=== PATIENT | male | born 1970 | race Caucasian/White ===

== ENCOUNTER 2016-07-21 21:22 | Emergency (ER) | payer MEDICAID, OTHER ==
[2016-07-21] MEDS ORDERED: FAMOTIDINE INJ/PF 20 MG/2 ML SDV IV ONE (21:59)
[2016-07-21] MEDS ORDERED: ONDANSETRON HCL INJ/PF 4 MG/2 ML SDV IV ONE (21:59)
[2016-07-21] MEDS ORDERED: NORMAL SALINE 1000 ML 1,000 ML IV PRN (21:59)
--- NOTE | 2016-07-21 22:03 | ER Document Report ---
ED GI/ - General Stated Complaint: NAUSEA Time seen by provider: 22:03 Mode of Arrival: Medic Information source: Patient TRAVEL OUTSIDE OF THE [place] IN LAST 30 DAYS: No - HPI Patient complains to provider of: Vomiting Onset: This afternoon Timing/Duration: Gradual Quality of pain: Achy, Cramping Severity at maximum: Moderate Severity in ED: Moderate Associated symptoms: Nausea, Vomiting Exacerbated by: Denies Relieved by: Denies Similar symptoms previously: Yes Recently seen / treated by doctor: No Notes: 07/22/16 05:07 Patient is a 46-year-old male who presents to the emergency room via EMS complaining of dizziness with nausea and vomiting, he states symptoms started earlier today, after intravenously injecting 2 bags of heroin, he states he does not believe that it was bad heroin, he states he uses heroin to help control his back pain which is chronic in nature, states he was previously and pain management and when that no longer could control his pain he returned to IV heroin, patient denies any suicidal or homicidal ideation, in fact stating " I love life", and reports that his back pain is under control now that he used heroin, he denies any fever, no diarrhea, no sick contacts, he does report that he wishes to attend rehabilitation or detox, however he reports that when he has tried to in the past no one will take him because he is a history of a mechanical heart valve - Related Data Allergies/Adverse Reactions: Sulfa (Sulfonamide Antibiotics) Allergy (Intermediate, Verified 09/22/15 18:49) hydromorphone HCl [From Dilaudid] Adverse Reaction (Verified 09/22/15 18:49) Past Medical History - General Information source: Patient - Social History Smoking Status: Never Smoker Drug Abuse: Heroin Family History: Reviewed & Not Pertinent, CAD - Past Medical History Cardiac Medical History: Reports: Hx Atrial Fibrillation - Paroxysmal atrial fibrillation, Hx Hypertension Pulmonary Medical History: Reports: Hx Bronchitis, Hx Pneumonia - "WALKING" Renal/ Medical History: Reports: Hx Kidney Stones Musculoskeltal Medical History: Reports Hx Arthritis - Back Past Surgical History: Reports: Hx Appendectomy, Hx Genitourinary Surgery, Hx Kidney (Renal Surgery) - percutaneous nephrostomy, Hx Open Heart Surgery - Mechanical heart valve, Hx Valve Replacement - [facility]. Roni aortic valve replacement , Hx Vascular Surgery - Thoracic aortic aneurysm repair - Immunizations Hx Diphtheria, Pertussis, Tetanus Vaccination: Yes Review of Systems - Review of Systems Constitutional: No symptoms reported EENT: No symptoms reported Cardiovascular: No symptoms reported Respiratory: No symptoms reported Gastrointestinal: See HPI Genitourinary: No symptoms reported Male Genitourinary: No symptoms reported Musculoskeletal: No symptoms reported Skin: No symptoms reported Hematologic/Lymphatic: No symptoms reported Neurological/Psychological: No symptoms reported -: Yes All other systems reviewed and negative Physical Exam - Vital signs Vitals: Resp Pulse Ox 19 98 07/21/16 21:54 07/21/16 21:54 Interpretation: Normal - General General appearance: Alert - Alert to verbal stimuli, however patient appears high or intoxicated In distress: None - HEENT Head: Normocephalic, Atraumatic Eyes: Normal Conjunctiva: Normal Extraocular movements intact: Yes Eyelashes: Normal Pupils: Pinpoint - Respiratory Respiratory status: No respiratory distress Chest status: Nontender Breath sounds: Normal Chest palpation: Normal - Cardiovascular Rhythm: Regular Heart sounds: Normal auscultation Murmur: No - Abdominal Inspection: Normal Distension: No distension Bowel sounds: Normal Tenderness: Tender - Mild epigastric Organomegaly: No organomegaly - Back Back: Normal - Extremities General upper extremity: Normal inspection, Nontender, Normal color, Normal ROM , Normal temperature General lower extremity: Normal inspection, Nontender, Normal color, Normal ROM , Normal temperature. No: Antonio's sign - Neurological Neuro grossly intact: Yes Cognition: Normal Orientation: AAOx4 [place] Coma Scale Eye Opening: To Voice Debbi Coma Scale Verbal: Oriented [place] Coma Scale Motor: Obeys Commands Debbi Coma Scale Total: 14 Speech: Normal Motor strength normal: LUE, RUE, LLE, RLE - Psychological Associated symptoms: Normal affect, Normal mood - Skin Skin Temperature: Warm Skin Moisture: Dry Skin Color: Normal Course - Re-evaluation Re-evalutation: 07/22/16 01:36 Patient has been resting comfortably, no vomiting has been noted since the emergency room, he had a few sips of Mountain Dew without any difficulty, I discussed discharge planning with patient as well as his lab values which are consistent with urinary tract infection, patient then asked me what his INR is, I was unaware that he was on any blood thinning medication but he reports that he is taking Coumadin, he had his INR checked 3 weeks ago was 1.5, so he has been taking 10 mg doses of his Coumadin for the past 2 weeks and has not had his INR rechecked, although he is supposed to be alternating 7.5 and 10 mg doses - Vital Signs Vital signs: Temp Pulse Resp BP Pulse Ox 20 123/85 99 07/22/16 02:01 07/22/16 02:00 07/22/16 02:01 - Laboratory Result Diagrams: 07/21/16 22:48 07/21/16 22:48 Laboratory results interpreted by me: 07/21/16 07/21/16 07/21/16 22:48 22:48 22:48 WBC 16.3 H RBC 4.10 L Hgb 10.8 L Hct 31.8 L MCV 78 L MCH 26.4 L RDW 14.6 H Seg Neuts % (Manual) 93 H Lymphocytes % (Manual) 3 L Abs Neuts (Manual) 15.2 H PT 28.9 H APTT 65.0 H Carbon Dioxide 31 H Glucose 112 H Urine Protein Urine Blood Ur Leukocyte Esterase 07/21/16 23:24 WBC RBC Hgb Hct MCV MCH RDW Seg Neuts % (Manual) Lymphocytes % (Manual) Abs Neuts (Manual) PT APTT Carbon Dioxide Glucose Urine Protein 30 H Urine Blood LARGE H Ur Leukocyte Esterase SMALL H Discharge - Discharge Clinical Impression: Heroin abuse Urinary tract infection Qualifiers: Urinary tract infection type: site unspecified Hematuria presence: without hematuria Qualified Code(s): N39.0 - Urinary tract infection, site not specified Nausea and vomiting Qualifiers: Vomiting type: unspecified Vomiting Intractability: non-intractable Qualified Code(s): R11.2 - Nausea with vomiting, unspecified Condition: Stable Disposition: HOME, SELF-CARE Instructions: Antinausea Medication ([facility]), Urinary Tract Infection ([facility]) Additional Instructions: Follow up with your primary care provider in one to 2 days. Return to the emergency room immediately if symptoms worsen or any additional concerns. Stop abusing heroin. Follow-up with a mental health provider to get assistance with placement and detox /rehabilitation. Prescriptions: Cephalexin Monohydrate [Keflex 500 mg Capsule] 500 mg PO BID #20 capsule
[2016-07-21 23:24] LABS: HEMATOCRIT 31.8 % (37.9-51.0); HEMOGLOBIN 10.8 g/dL (13.5-17.0); HGB HCT DIFFERENCE 0.6; MEAN CORPUSCULAR HEMOGLOBIN 26.4 pg (27.0-33.4); MEAN CORPUSCULAR HGB CONC 34.1 g/dL (32.0-36.0); MEAN CORPUSCULAR VOLUME 78 fl (80-97); RED CELL DISTRIBUTION WIDTH 14.6 % (11.5-14.0); WHITE BLOOD COUNT 16.3 10^3/uL (4.0-10.5)
[2016-07-21 23:28] LABS: ALANINE AMINOTRANSFERASE 23 U/L (21-72); ALBUMIN 3.7 g/dL (3.5-5.0); ALKALINE PHOSPHATASE 88 U/L (38-126); ANION GAP 10 (5-19); ASPARTATE AMINO TRANSFERASE 17 U/L (17-59); BILIRUBIN,DIRECT 0.2 mg/dL (0.0-0.4); BILIRUBIN,TOTAL 0.8 mg/dL (0.2-1.3); BLOOD UREA NITROGEN 16 mg/dL (7-20); CALCIUM 8.9 mg/dL (8.4-10.2); CARBON DIOXIDE 31 mmol/L (22-30); CHLORIDE 99 mmol/L (98-107); CREATINE KINASE 77 U/L (55-170); CREATININE RESULT 0.95 mg/dL (0.52-1.25); GLUCOSE 112 mg/dL (75-110); LIPASE 25.8 U/L (23-300); POTASSIUM 4.4 mmol/L (3.6-5.0); SODIUM 140.2 mmol/L (137-145); TOTAL PROTEIN 6.4 g/dL (6.3-8.2)
[2016-07-21 23:39] LABS: BASOPHILS % (MANUAL) 0 % (0-2); CREATINE KINASE MB 0.94 ng/mL (<4.55); EOSINOPHILS % (MANUAL) 0 % (0-6); LYMPHOCYTES % (MANUAL) 3 % (13-45); TOTAL CELLS COUNTED 100; TROPONIN I 0.023 ng/mL
[2016-07-21 23:40] LABS: ANISOCYTOSIS SLIGHT; MICROCYTOSIS SLIGHT; POIKILOCYTOSIS SLIGHT; TOXIC GRANULATION SLIGHT
[2016-07-21 23:41] LABS: OVALOCYTES SLIGHT; TEAR DROP CELLS SLIGHT
[2016-07-21 23:46] LABS: APPEARANCE,URINE CLOUDY; BILIRUBIN,URINE NEGATIVE (NEGATIVE); GLUCOSE, URINE NEGATIVE (NEGATIVE); KETONES,URINE NEGATIVE (NEGATIVE); LEUKOCYTE ESTERASE,URINE SMALL (NEGATIVE); NITRITE,URINE NEGATIVE (NEGATIVE); PROTEIN,URINE 30 mg/dL (NEGATIVE); URINE SPECIFIC GRAVITY 1.024; UROBILINOGEN,URINE NEGATIVE mg/dL (<2.0)
[2016-07-22 00:05] LABS: URINE BARBITURATES SCREEN NEGATIVE; URINE METHADONE SCREEN NEGATIVE; URINE OPIATES LOW UNCONFIRMED POSITIVE; URINE PHENCYCLIDINE SCREEN NEGATIVE
[2016-07-22 01:46] LABS: PROTHROMBIN TIME 28.9 SEC (11.4-15.4)
[2016-07-22] MEDS ORDERED: CEPHALEXIN 500 MG CAPSULE PO ONE (01:50)
[2016-07-22 02:05] VITALS: BP 123/85
[2016-07-22] MEDS ORDERED: ONDANSETRON ODT 4 MG TAB (6 TAB/DSPK) PO PRN (02:05)
--- NOTE | 2016-07-22 09:46 | EKG REPORT ---
SEVERITY:- ABNORMAL ECG - ATRIAL FIBRILLATION, V-RATE 73-120 BORDERLINE LEFT AXIS DEVIATION BORDERLINE PROLONGED QT INTERVAL : Confirmed by: Jose Henriquez 22-Jul-2016 09:45:02
== END 2016-07-22 03:00 | disposition home or self-care (01) ==
LOC: ER 21:22
DX: F11.10 Opioid abuse, uncomplicated (principal); N39.0 Urinary tract infection, site not specified; R11.2 Nausea with vomiting, unspecified; R42 Dizziness and giddiness; R10.816 Epigastric abdominal tenderness; I10 Essential (primary) hypertension; M54.9 Dorsalgia, unspecified; G89.29 Other chronic pain; Z95.2 Presence of prosthetic heart valve; Z79.01 Long term (current) use of anticoagulants; Z91.14 Patient's other noncompliance with medication regimen
CPT/HCPCS: 93005; 99284; 96361; 96374; 96375; 36415; 82553; 82550; 83690; 85025; 85610; 85730; 80053; 81001; 84484; 80307; 93010; J2405; J7030; S0028

== ENCOUNTER 2016-09-11 10:16 | Emergency (ER) | payer MEDICAID, OTHER ==
--- NOTE | 2016-09-11 11:26 | ER Document Report ---
ED Medical Screen (RME) - General Chief Complaint: Chest Pain Stated Complaint: CHEST PAIN, BLOOD IN URINE Time Seen by Provider: 09/11/16 11:20 Mode of Arrival: Ambulatory Information source: Patient TRAVEL OUTSIDE OF THE [place] IN LAST 30 DAYS: No - HPI Patient complains to provider of: Chest pain, back pain, hematuria Notes: 09/11/16 11:26 Is a 46-year-old male with a history of chronic low back pain related to stenosis and arthritis, mechanical heart valve replacement, who currently takes Coumadin 7 mg daily, presenting to the emergency room complaining of chest pain , back pain and hematuria, back pain is chronic in nature but worsened over the past 2-3 weeks, chest pain is on the left side and worsened over the last 2-3 weeks, it is worse with deep breath, blood in the urine started this morning - Related Data Allergies/Adverse Reactions: Sulfa (Sulfonamide Antibiotics) Allergy (Intermediate, Verified 09/11/16 10:24) hydromorphone HCl [From Dilaudid] Adverse Reaction (Verified 09/11/16 10:24) Past Medical History - Past Medical History Cardiac Medical History: Reports: Hx Atrial Fibrillation - Paroxysmal atrial fibrillation, Hx Hypertension Pulmonary Medical History: Reports: Hx Bronchitis, Hx Pneumonia - "WALKING" Renal/ Medical History: Reports: Hx Kidney Stones. Denies: Hx Peritoneal Dialysis Musculoskeltal Medical History: Reports Hx Arthritis - Back Past Surgical History: Reports: Hx Appendectomy, Hx Genitourinary Surgery, Hx Kidney (Renal Surgery) - percutaneous nephrostomy, Hx Open Heart Surgery - Mechanical heart valve, Hx Valve Replacement - St. Roni aortic valve replacement , Hx Vascular Surgery - Thoracic aortic aneurysm repair - Immunizations Hx Diphtheria, Pertussis, Tetanus Vaccination: Yes Physical Exam - Vital signs Vitals: Temp Pulse Resp BP Pulse Ox 99.1 F 94 16 147/86 H 97 09/11/16 10:24 09/11/16 10:24 09/11/16 10:24 09/11/16 10:24 09/11/16 10:24 Course - Vital Signs Vital signs: Temp Pulse Resp BP Pulse Ox 99.1 F 94 16 147/86 H 97 09/11/16 10:24 09/11/16 10:24 09/11/16 10:24 09/11/16 10:24 09/11/16 10:24
[2016-09-11] MEDS ORDERED: MORPHINE SULFATE 10 MG/ML INJ IV ONE ×3 (12:01→15:09)
[2016-09-11 12:23] LABS: HEMOGLOBIN 9.8 g/dL (13.5-17.0); HGB HCT DIFFERENCE -1.6; MEAN CORPUSCULAR HEMOGLOBIN 24.1 pg (27.0-33.4); MEAN CORPUSCULAR HGB CONC 31.7 g/dL (32.0-36.0); MEAN CORPUSCULAR VOLUME 76 fl (80-97); RED BLOOD COUNT 4.08 10^6/uL (4.35-5.55); RED CELL DISTRIBUTION WIDTH 15.1 % (11.5-14.0); WHITE BLOOD COUNT 15.8 10^3/uL (4.0-10.5)
[2016-09-11 12:31] LABS: AMORPHOUS SEDIMENT,URINE TRACE /HPF; APPEARANCE,URINE TURBID; BILIRUBIN,URINE NEGATIVE (NEGATIVE); GLUCOSE, URINE NEGATIVE (NEGATIVE); KETONES,URINE NEGATIVE (NEGATIVE); LEUKOCYTE ESTERASE,URINE TRACE (NEGATIVE); NITRITE,URINE NEGATIVE (NEGATIVE); PROTEIN,URINE 100 mg/dL (NEGATIVE); URINE SPECIFIC GRAVITY 1.021; UROBILINOGEN,URINE NEGATIVE mg/dL (<2.0)
--- NOTE | 2016-09-11 12:39 | RADIOLOGY REPORT (SQ) ---
EXAM DESCRIPTION: CHEST PA/LAT COMPLETED DATE/TIME: 09/11/2016 12:31 pm REASON FOR STUDY: cp COMPARISON: 03/09/2016 EXAM PARAMETERS: NUMBER OF VIEWS: two views TECHNIQUE: Digital Frontal and Lateral radiographic views of the chest acquired. RADIATION DOSE: NA LIMITATIONS: none FINDINGS: LUNGS AND PLEURA: No opacities, masses or pneumothorax. No pleural effusion. MEDIASTINUM AND HILAR STRUCTURES: No masses or contour abnormalities. HEART AND VASCULAR STRUCTURES: Heart normal size. No evidence for failure. BONES: No acute findings. HARDWARE: Sternotomy wires. Heart valve. OTHER: No other significant finding. IMPRESSION: NO SIGNIFICANT RADIOGRAPHIC FINDING IN THE CHEST. TECHNICAL DOCUMENTATION: JOB ID: [id number] [employer]- All Rights Reserved
[2016-09-11 12:48] LABS: BASOPHILS % (MANUAL) 0 % (0-2); EOSINOPHILS % (MANUAL) 0 % (0-6); LYMPHOCYTES % (MANUAL) 7 % (13-45); TOTAL CELLS COUNTED 100
[2016-09-11 12:49] LABS: ANISOCYTOSIS SLIGHT; HYPOCHROMASIA 1+; MICROCYTOSIS SLIGHT; OVALOCYTES 1+; POIKILOCYTOSIS 1+
[2016-09-11 12:53] LABS: ALANINE AMINOTRANSFERASE 23 U/L (21-72); ALBUMIN 3.4 g/dL (3.5-5.0); ALKALINE PHOSPHATASE 96 U/L (38-126); ANION GAP 10 (5-19); ASPARTATE AMINO TRANSFERASE 11 U/L (17-59); BILIRUBIN,DIRECT 0.4 mg/dL (0.0-0.4); BILIRUBIN,TOTAL 0.6 mg/dL (0.2-1.3); BLOOD UREA NITROGEN 15 mg/dL (7-20); CALCIUM 8.7 mg/dL (8.4-10.2); CARBON DIOXIDE 27 mmol/L (22-30); CHLORIDE 98 mmol/L (98-107); CREATINE KINASE 29 U/L (55-170); GLUCOSE 112 mg/dL (75-110); POTASSIUM 4.4 mmol/L (3.6-5.0); SODIUM 135.1 mmol/L (137-145); TOTAL PROTEIN 6.7 g/dL (6.3-8.2)
[2016-09-11 13:00] LABS: CREATINE KINASE MB 0.47 ng/mL (<4.55)
[2016-09-11] MEDS ORDERED: HYDROMORPHONE HCL INJ/PF 2 MG/ML AMPULE IV ONE (13:34)
[2016-09-11] MEDS ORDERED: ONDANSETRON HCL INJ/PF 4 MG/2 ML SDV IV ONE (13:34)
[2016-09-11 13:37] LABS: PARTIAL THROMBOPLASTIN TIME 122.1 SEC (23.5-35.8)
[2016-09-11 13:45] LABS: PROTHROMBIN TIME 107.3 SEC (11.4-15.4)
--- NOTE | 2016-09-11 13:50 | ER Document Report ---
ED General - General Chief Complaint: Chest Pain Stated Complaint: CHEST PAIN, BLOOD IN URINE Time Seen by Provider: 09/11/16 11:20 Mode of Arrival: Ambulatory Information source: Patient Notes: 46-year-old male who is on Coumadin for mechanical valve presents with complaints of hematuria. Patient notes when his INR was elevated last time he was having hematuria. Symptoms started yesterday. Admits to mild flank pain and chronic chest pain TRAVEL OUTSIDE OF THE [place] IN LAST 30 DAYS: No - HPI Onset: Just prior to arrival Onset/Duration: Sudden Quality of pain: Sharp Severity: Mild Pain Level: 1 Associated symptoms: Other Exacerbated by: Denies Relieved by: Denies Similar symptoms previously: Yes Recently seen / treated by doctor: Yes - Related Data Allergies/Adverse Reactions: Sulfa (Sulfonamide Antibiotics) Allergy (Intermediate, Verified 09/11/16 10:24) hydromorphone HCl [From Dilaudid] Adverse Reaction (Verified 09/11/16 10:24) Past Medical History - General Information source: Patient - Social History Smoking Status: Never Smoker Cigarette use (# per day): No Chew tobacco use (# tins/day): No Smoking Education Provided: No Family History: Reviewed & Not Pertinent, CAD Patient has suicidal ideation: No Patient has homicidal ideation: No - Past Medical History Cardiac Medical History: Reports: Hx Atrial Fibrillation - Paroxysmal atrial fibrillation, Hx Hypertension Pulmonary Medical History: Reports: Hx Bronchitis, Hx Pneumonia - "WALKING" Renal/ Medical History: Reports: Hx Kidney Stones. Denies: Hx Peritoneal Dialysis Musculoskeltal Medical History: Reports Hx Arthritis - Back Past Surgical History: Reports: Hx Appendectomy, Hx Genitourinary Surgery, Hx Kidney (Renal Surgery) - percutaneous nephrostomy, Hx Open Heart Surgery - Mechanical heart valve, Hx Valve Replacement - St. Roni aortic valve replacement , Hx Vascular Surgery - Thoracic aortic aneurysm repair - Immunizations Hx Diphtheria, Pertussis, Tetanus Vaccination: Yes Review of Systems - Review of Systems Notes: REVIEW OF SYSTEMS: CONSTITUTIONAL : Denies fever, chills, or sweats. Denies recent illness. EENT: Denies eye, ear, throat, or mouth pain or symptoms. Denies nasal or sinus congestion or discharge. Denies throat, tongue, or mouth swelling or difficulty swallowing. CARDIOVASCULAR: Denies chest pain. Denies palpitations or racing or irregular heart beat. Denies ankle edema. RESPIRATORY: Denies cough, cold, or chest congestion. Denies shortness of breath, difficulty breathing, or wheezing. GASTROINTESTINAL: Denies abdominal pain or distention. Denies nausea, vomiting , or diarrhea. Denies blood in vomitus, stools, or per rectum. Denies black, tarry stools. Denies constipation. GENITOURINARY: Admits to hematuria MUSCULOSKELETAL: Denies back or neck pain or stiffness. Denies joint pain or swelling. SKIN: Denies rash, lesions or sores. HEMATOLOGIC : Denies easy bruising or bleeding. LYMPHATIC: Denies swollen, enlarged glands. NEUROLOGICAL: Denies confusion or altered mental status. Denies passing out or loss of consciousness. Denies dizziness or lightheadedness. Denies headache. Denies weakness or paralysis or loss of use of either side. Denies problems with gait or speech. Denies sensory loss, numbness, or tingling. Denies seizures. PSYCHIATRIC: Denies anxiety or stress. Denies depression, suicidal ideation, or homicidal ideation. ALL OTHER SYSTEMS REVIEWED AND NEGATIVE. Dictation was performed using [employer] voice recognition software PHYSICAL EXAMINATION: GENERAL: Well-appearing, well-nourished and in no acute distress. HEAD: Atraumatic, normocephalic. EYES: Pupils equal round and reactive to light, extraocular movements intact, sclera anicteric, conjunctiva are normal. ENT: Nares patent, oropharynx clear without exudates. Moist mucous membranes. NECK: Normal range of motion, supple without lymphadenopathy LUNGS: Breath sounds clear to auscultation bilaterally and equal. No wheezes rales or rhonchi. HEART: Regular rate and rhythm without murmurs ABDOMEN: Soft, nontender, nondistended abdomen. No guarding, no rebound. No masses appreciated. Musculoskeletal: Normal range of motion, no pitting or edema. No cyanosis. NEUROLOGICAL: Cranial nerves grossly intact. Normal speech, normal gait. Normal sensory, motor exams PSYCH: Normal mood, normal affect. SKIN: Warm, Dry, normal turgor, no rashes or lesions noted. Physical Exam - Vital signs Vitals: Temp Pulse Resp BP Pulse Ox 99.1 F 94 16 147/86 H 97 09/11/16 10:24 09/11/16 10:24 09/11/16 10:24 09/11/16 10:24 09/11/16 10:24 Course - Re-evaluation Re-evalutation: 09/11/16 15:26 Patient's INR is noted to be 14, he is only having hematuria with no other systemic issues, I did speak with Dr. Jones who states patient can follow-up outpatient. I did speak with the patient and I will have him recheck his INR in 3 days when I am here, patient being a very very strict return precautions instructed to not put himself in any position where he can bleed out. Patient states he understands and will do so 09/11/16 15:42 Patient was given 10 mg of oral vitamin K After performing a Medical Screening Examination, I estimate there is LOW risk for ACUTE CORONARY SYNDROME, RESPIRATORY FAILURE, SEPSIS OR MENINGITIS, thus I consider the discharge disposition reasonable. I have reevaluated this patient multiple times and no significant life threatening changes are noted. The patient and I have discussed the diagnosis and risks, and we agree with discharging home with close follow-up. We also discussed returning to the Emergency Department immediately if new or worsening symptoms occur. We have discussed the symptoms which are most concerning (e.g., changing or worsening pain, trouble swallowing or breathing, neck stiffness, fever) that necessitate immediate return. - Vital Signs Vital signs: Temp Pulse Resp BP Pulse Ox 99.1 F 94 17 156/94 H 100 09/11/16 10:24 09/11/16 10:24 09/11/16 15:01 09/11/16 15:01 09/11/16 15:01 - Laboratory Result Diagrams: 09/11/16 11:45 09/11/16 11:45 Laboratory results interpreted by me: 09/11/16 09/11/16 09/11/16 11:45 11:45 11:45 WBC 15.8 H RBC 4.08 L Hgb 9.8 L Hct 31.0 L MCV 76 L MCH 24.1 L MCHC 31.7 L RDW 15.1 H Seg Neuts % (Manual) 90 H Lymphocytes % (Manual) 7 L Abs Neuts (Manual) 14.2 H PT INR APTT Sodium 135.1 L Glucose 112 H AST 11 L Creatine Kinase 29 L NT-Pro-B Natriuret Pep 3700 H Albumin 3.4 L Urine Protein Urine Blood Ur Leukocyte Esterase 09/11/16 09/11/16 11:45 13:15 WBC RBC Hgb Hct MCV MCH MCHC RDW Seg Neuts % (Manual) Lymphocytes % (Manual) Abs Neuts (Manual) PT 107.3 H* INR 13.96 H* APTT 122.1 H Sodium Glucose AST Creatine Kinase NT-Pro-B Natriuret Pep Albumin Urine Protein 100 H Urine Blood LARGE H Ur Leukocyte Esterase TRACE H Discharge - Discharge Clinical Impression: Elevated INR, Hematuria Condition: Stable Disposition: HOME, SELF-CARE Additional Instructions: You must return immediately if there are any other concerns Please recheck your INR Forms: Follow-Up Laboratory Testing Referrals: BRAD JEAN MD [Primary Care Provider] - Follow up as needed
[2016-09-11] MEDS ORDERED: PHYTONADIONE 5 MG TABLET PO ONE (13:56)
--- NOTE | 2016-09-11 14:35 | RADIOLOGY REPORT (SQ) ---
EXAM DESCRIPTION: CT LTD RENAL STONE PROTOCOL ON COMPLETED DATE/TIME: 09/11/2016 2:24 pm REASON FOR STUDY: flank pain hematura COMPARISON: 08/18/2015 TECHNIQUE: CT scan of the abdomen and pelvis performed without intravenous or oral contrast. Images reviewed with lung, soft tissue, and bone windows. Reconstructed coronal and sagittal MPR images revi ewed. All images stored on PACS. All CT scanners at this facility use dose modulation, iterative reconstruction, and/or weight based d osing when appropriate to reduce radiation dose to as low as reasonably achievable (ALARA). [facility]: Dose Right [facility]: CareDose [facility]: Dose Right [facility]: Teradose 4D [facility]: RailRunner RADIATION DOSE: mGy. LIMITATIONS: None. FINDINGS: LOWER CHEST: No significant findings. No nodules or infiltrates. NON-CONTRASTED LIVER, SPLEEN, ADRENALS: Evaluation limited by lack of IV contrast. No identified sign ificant masses. PANCREAS: No masses. No peripancreatic inflammatory changes. GALLBLADDER: No identified stones by CT criteria. No inflammatory changes to suggest cholecystitis. RIGHT KIDNEY AND URETER: No suspicious masses. Assessment limited by lack of IV contrast. There are small 1 to 2 mm nonobstructing stones. No hydronephrosis or hydroureter. LEFT KIDNEY AND URETER: No suspicious masses. Assessment limited by lack of IV contrast. There are stable left renal calculi. The patient is developing a staghorn calculus in the lower pole the left kidney. Largest diameter is 1.5 cm. No hydronephrosis or hydroureter. AORTA AND RETROPERITONEUM: No aneurysm. No retroperitoneal masses or adenopathy. BOWEL AND PERITONEAL CAVITY: No obvious masses or inflammatory changes. No free fluid. APPENDIX: Surgically absent. PELVIS, BLADDER, AND ABDOMINAL WALL:No abnormal masses. No free fluid. Bladder normal. BONES: No significant findings. OTHER: No other significant finding. IMPRESSION: 1. Stable stones in the lower pole the left kidney as described. No hydronephrosis or hydroureter. 2. Small 1 to 2 mm nonobstructing stones in the right kidney. TECHNICAL DOCUMENTATION: JOB ID: [id number] Quality ID # [id number]: Final reports with documentation of one or more dose reduction techniques (e.g., Au tomated exposure control, adjustment of the mA and/or kV according to patient size, use of iterative reconstruction technique) 2010 [employer]- All Rights Reserved
[2016-09-11 16:14] VITALS: BP 133/90
--- NOTE | 2016-09-11 17:55 | EKG REPORT ---
SEVERITY:- ABNORMAL ECG - ATRIAL FIBRILLATION, V-RATE 75-128 LEFT VENTRICULAR HYPERTROPHY BORDERLINE PROLONGED QT INTERVAL : Confirmed by: Katt Dixon MD 11-Sep-2016 17:55:05
== END 2016-09-11 16:33 | disposition home or self-care (01) ==
LOC: ER 10:16
DX: R79.1 Abnormal coagulation profile (principal); R31.9 Hematuria, unspecified; R07.9 Chest pain, unspecified; R10.9 Unspecified abdominal pain; G89.29 Other chronic pain
CPT/HCPCS: 93005; 96376; 99285; 96374; 96375; 36415; 87086; 82553; 82550; 85025; 85610; 85730; 80053; 81001; 83880; 71020; 76380; 93010; J2270; J3490; J2405

== ENCOUNTER 2016-09-18 07:40 | Emergency (ER) | payer MEDICAID ==
[2016-09-18] MEDS ORDERED: ASPIRIN 81 MG TABLET, CHEWABLE PO ONE (07:49)
--- NOTE | 2016-09-18 08:38 | RADIOLOGY REPORT (SQ) ---
EXAM DESCRIPTION: CHEST SINGLE VIEW COMPLETED DATE/TIME: 09/18/2016 8:16 am REASON FOR STUDY: rme cp COMPARISON: 09/11/2016 EXAM PARAMETERS: NUMBER OF VIEWS: One view. TECHNIQUE: Single frontal radiographic view of the chest acquired. RADIATION DOSE: NA LIMITATIONS: None. FINDINGS: LUNGS AND PLEURA: No opacities, masses or pneumothorax. No pleural effusion. MEDIASTINUM AND HILAR STRUCTURES: No masses. Contour normal. HEART AND VASCULAR STRUCTURES: Heart normal in size. Normal vasculature. BONES: No acute findings. HARDWARE: Sternotomy wires are in place. Surgical clips overlie the right upper chest as well. Ther e is a valvular prosthesis in place. OTHER: No other significant finding. IMPRESSION: NO ACUTE RADIOGRAPHIC FINDING IN THE CHEST. TECHNICAL DOCUMENTATION: JOB ID: [id number]
--- NOTE | 2016-09-18 08:39 | EKG REPORT ---
SEVERITY:- ABNORMAL ECG - ATRIAL FIBRILLATION, V-RATE 89-135 BORDERLINE PROLONGED QT INTERVAL : Confirmed by: Jose Henriquez 18-Sep-2016 08:38:45
--- NOTE | 2016-09-18 09:42 | ER Document Report ---
ED General - General Mode of Arrival: Ambulatory Information source: Patient TRAVEL OUTSIDE OF THE [place] IN LAST 30 DAYS: No - HPI Onset: Other Quality of pain: Achy Severity: None Similar symptoms previously: Yes Recently seen / treated by doctor: Yes <ZULMA SALDANA - Last Filed: 09/18/16 12:37> <SIMA EL - Last Filed: 09/18/16 14:45> <JESUS RHODES - Last Filed: 09/25/16 22:43> - General Chief Complaint: Chest Pain Stated Complaint: CHEST PAIN, BACK PAIN Time Seen by Provider: 09/18/16 09:10 Notes: Patient is a 46 year old male that presents to the emergency department today with complaints of chest pain, blood in his urine, and bilateral foot/ankle swelling. Patient states he first noticed his foot swelling today. Patient has a history of kidney stones and was recently seen in this ED one week ago for the same complaints. Patient requesting Morphine by name, redirected. (ZULMA SALDANA) This 46-year-old male patient comes emergency room complaining of left-sided chest pain, left upper arm pain, and back pain. He does have chronic back pain and has chronic chest pain. He is requesting for morphine. He states he took himself off of Suboxone several months ago. He was seen here on July 20, 2016 after problems following IV injection of heroin. He was arrested September 22, 2015 for possession with intent to deliver 4 bindles of heroin. He was seen here 7 days ago with similar complaints and received several doses of morphine IV, and a dose of Dilaudid IV, and the chart indicates prescriptions for Dilaudid and Opana were written. Review of charts going back to last year shows he always has blood in his urine. His visit 7 days ago had blood in urine, however the CT scan did not show hydronephrosis, hydroureter, or any obstructing stones. There were stable stones seen in the lower pole left kidney and a couple of small calcifications in the right kidney. After his mother arrived, she was requesting pain medication for him and wanted to know why doctors do not just give pain medicine to people when they say they are in pain. I informed the patient that we do not provide chronic pain management in the emergency room and he will need to see his primary care provider or a pain management doctor for further treatment. (SIMA EL) - Related Data Allergies/Adverse Reactions: Sulfa (Sulfonamide Antibiotics) Allergy (Intermediate, Verified 09/25/16 06:06) hydromorphone HCl [From Dilaudid] Adverse Reaction (Verified 09/25/16 06:06) Past Medical History - General Information source: Patient - Social History Smoking Status: Never Smoker Cigarette use (# per day): No Chew tobacco use (# tins/day): No Frequency of alcohol use: None Drug Abuse: None Lives with: Family Family History: Reviewed & Not Pertinent, CAD Patient has suicidal ideation: No Patient has homicidal ideation: No - Past Medical History Cardiac Medical History: Reports: Hx Atrial Fibrillation - Paroxysmal atrial fibrillation, Hx Hypertension Pulmonary Medical History: Reports: Hx Bronchitis, Hx Pneumonia - "WALKING" Renal/ Medical History: Reports: Hx Kidney Stones Musculoskeltal Medical History: Reports Hx Arthritis - Back Past Surgical History: Reports: Hx Appendectomy, Hx Genitourinary Surgery, Hx Kidney (Renal Surgery) - percutaneous nephrostomy, Hx Open Heart Surgery - Mechanical heart valve, Hx Valve Replacement - St. Roni aortic valve replacement , Hx Vascular Surgery - Thoracic aortic aneurysm repair - Immunizations Hx Diphtheria, Pertussis, Tetanus Vaccination: Yes <ZULMA SALDANA - Last Filed: 09/18/16 12:37> Review of Systems - Review of Systems Constitutional: No symptoms reported EENT: No symptoms reported Cardiovascular: See HPI, Chest pain Respiratory: No symptoms reported Gastrointestinal: No symptoms reported Genitourinary: See HPI, Hematuria Male Genitourinary: No symptoms reported Musculoskeletal: See HPI, Other - bilateral foot/ankle swelling R>L Skin: No symptoms reported Hematologic/Lymphatic: No symptoms reported Neurological/Psychological: No symptoms reported -: Yes All other systems reviewed and negative <ZULMA SALDANA - Last Filed: 09/18/16 12:37> Physical Exam <ZULMA SALDANA - Last Filed: 09/18/16 12:37> <SIMA EL - Last Filed: 09/18/16 14:45> <JESUS RHODES - Last Filed: 09/25/16 22:43> - Vital signs Vitals: Temp Pulse Resp BP Pulse Ox 99 F 103 H 18 118/59 L 100 09/18/16 07:53 09/18/16 07:53 09/18/16 07:53 09/18/16 07:53 09/18/16 07:53 - Notes Notes: Physical Exam: General: Alert. HEENT: Normocephalic. Atraumatic. PERRL. Extraocular movements intact. Oropharynx clear. Neck: Supple. Non-tender. Respiratory: No respiratory distress. Clear and equal breath sounds bilaterally. Minimal chest wall tenderness with palpation. Cardiovascular: Regular rate and rhythm. Abdominal: Normal Inspection. Non-tender. No distension. Normal Bowel Sounds. Back: Non-tender. No deformity or step off. Extremities: Moves all four extremities. Upper extremities: Normal inspection. Normal ROM. Lower extremities: 1+ edema right ankle, trace edema to left ankle. Neurological: Normal cognition. AAOx4. Normal speech. Psychological: Normal affect. Normal Mood. Skin: Warm. Dry. Normal color. (ZULMA SALDANA) Course - Laboratory Result Diagrams: 09/18/16 09:30 09/18/16 09:30 <ZULMA SALDANA - Last Filed: 09/18/16 12:37> - Laboratory Result Diagrams: 09/18/16 09:30 09/18/16 09:30 <SIMA EL - Last Filed: 09/18/16 14:45> - Laboratory Result Diagrams: 09/18/16 09:30 09/18/16 09:30 <JESUS RHODES - Last Filed: 09/25/16 22:43> - Vital Signs Vital signs: Temp Pulse Resp BP Pulse Ox 99 F 103 H 14 124/83 98 09/18/16 07:53 09/18/16 07:53 09/18/16 12:01 09/18/16 12:00 09/18/16 11:01 - Laboratory Laboratory results interpreted by me: 09/18/16 09/18/16 09/18/16 09:30 09:30 09:30 WBC 17.5 H RBC 3.92 L Hgb 9.4 L Hct 29.7 L MCV 76 L MCH 23.9 L MCHC 31.5 L RDW 14.7 H Seg Neuts % (Manual) 91 H Band Neutrophils % 1 L Lymphocytes % (Manual) 2 L Abs Neuts (Manual) 16.1 H Abs Lymphs (Manual) 0.4 L PT 35.7 H D Sodium 134.3 L Glucose 174 H Calcium 8.3 L AST 10 L ALT 19 L Creatine Kinase 24 L Total Protein 6.0 L Albumin 2.7 L Urine Protein Urine Blood Ur Leukocyte Esterase 09/18/16 10:20 WBC RBC Hgb Hct MCV MCH MCHC RDW Seg Neuts % (Manual) Band Neutrophils % Lymphocytes % (Manual) Abs Neuts (Manual) Abs Lymphs (Manual) PT Sodium Glucose Calcium AST ALT Creatine Kinase Total Protein Albumin Urine Protein 30 H Urine Blood LARGE H Ur Leukocyte Esterase TRACE H Discharge <ZULMA SALDANA - Last Filed: 09/18/16 12:37> <SIMA EL - Last Filed: 09/18/16 14:45> <JESUS RHODES - Last Filed: 09/25/16 22:43> - Discharge Clinical Impression: Anticoagulation adequate Chest pain Qualifiers: Chest pain type: unspecified Qualified Code(s): R07.9 - Chest pain, unspecified Chronic back pain Qualifiers: Back pain location: back pain in unspecified location Back pain laterality: unspecified Qualified Code(s): M54.9 - Dorsalgia, unspecified Condition: Stable Disposition: HOME, SELF-CARE Additional Instructions: Chest Pain of Unclear Cause: The exact cause of your chest pain isn't clear. Fortunately, there is no evidence of a dangerous medical condition. Further testing may be required to find the source of the pain. Most often, we find that this pain is coming from the chest wall -- the muscles or rib joints in the chest. But chest pain can come from the lung and lung lining, the esophagus, the heart valves or heart lining, and even the stomach or gallbladder. Rest. Eat lightly until the pain is gone. We may prescribe medicine for pain and inflammation. You should call the physician immediately if the pain radiates to the shoulder, jaw or arms; if you start to run a fever or develop a cough; or if you develop shortness of breath, or other new or alarming symptoms. Flank Pain: We weren't able to prove an exact cause for your flank pain. Pain in the flank can be caused by a muscle strain or spasm. Sometimes a kidney stone causes pain, but can't be found on our tests. Infection in the kidney should be evident on a urine test. Early shingles can occasionally cause flank pain, without the rash that proves the diagnosis. On rare occasions, disease of the pancreas, aorta, spleen, or colon can create pain in the flank. At this time, there's no evidence of a dangerous condition, and it seems safe for you to be at home. If the pain goes away and does not come back, no further testing will be needed. If pain persists, or becomes more severe, we may need to repeat some tests or order additional new testing. Blood in the urine, urgency to urinate frequently, and pain that radiates to the groin can indicate a kidney stone. Fever may mean that the pain is due to infection, either of the kidney or the colon (diverticulitis). If your pain is early shingles, you should develop an eruption of blisters in the painful area within a few days. Call the doctor or return if you have pain that is spreading or becoming more severe, pain that does not resolve with time, fever, or any other new symptoms. Chronic Pain: We do not manage chronic pain in the Emergency Department. For on-going chronic pain that does not improve, you will need to see your private doctor or pattern painter. We do not provide repeated medication management of chronic painful conditions. If you wish, we can provide the name of local pain management physicians. FOLLOW UP WITH A LOCAL MEDICAL DOCTOR OR SITE DIRECTOR FOR PAIN CONTROL. RETURN TO THE EMERGENCY ROOM IF ANY NEW OR WORSENING SYMPTOMS. Forms: Return to Work Scribe Attestation: 09/18/16 11:42 I personally performed the services described in the documentation, reviewed and edited the documentation which was dictated to the scribe in my presence, and it accurately records my words and actions. (SIMA EL) Scribe Documentation - Scribe Written by Narendra:: Narendra Cheung, 09/18/2016 1238 acting as scribe for :: Anita <ZULMA SALDANA - Last Filed: 09/18/16 12:37>
[2016-09-18 09:56] LABS: HEMATOCRIT 29.7 % (37.9-51.0); HEMOGLOBIN 9.4 g/dL (13.5-17.0); HGB HCT DIFFERENCE -1.5; MEAN CORPUSCULAR HEMOGLOBIN 23.9 pg (27.0-33.4); MEAN CORPUSCULAR HGB CONC 31.5 g/dL (32.0-36.0); MEAN CORPUSCULAR VOLUME 76 fl (80-97); RED BLOOD COUNT 3.92 10^6/uL (4.35-5.55); RED CELL DISTRIBUTION WIDTH 14.7 % (11.5-14.0); WHITE BLOOD COUNT 17.5 10^3/uL (4.0-10.5)
[2016-09-18 10:08] LABS: PROTHROMBIN TIME 35.7 SEC (11.4-15.4)
[2016-09-18 10:21] LABS: ALANINE AMINOTRANSFERASE 19 U/L (21-72); ALBUMIN 2.7 g/dL (3.5-5.0); ALKALINE PHOSPHATASE 79 U/L (38-126); ANION GAP 8 (5-19); ASPARTATE AMINO TRANSFERASE 10 U/L (17-59); BILIRUBIN,DIRECT 0.3 mg/dL (0.0-0.4); BILIRUBIN,TOTAL 0.7 mg/dL (0.2-1.3); BLOOD UREA NITROGEN 18 mg/dL (7-20); CALCIUM 8.3 mg/dL (8.4-10.2); CARBON DIOXIDE 28 mmol/L (22-30); CHLORIDE 98 mmol/L (98-107); CREATINE KINASE 24 U/L (55-170); CREATININE RESULT 0.88 mg/dL (0.52-1.25); GLUCOSE 174 mg/dL (75-110); POTASSIUM 4.6 mmol/L (3.6-5.0); SODIUM 134.3 mmol/L (137-145)
[2016-09-18 10:28] LABS: BAND NEUTROPHILS % (MANUAL) 1 % (3-5); BASOPHILS % (MANUAL) 0 % (0-2); EOSINOPHILS % (MANUAL) 0 % (0-6); LYMPHOCYTES % (MANUAL) 2 % (13-45); TOTAL CELLS COUNTED 100
[2016-09-18 10:29] LABS: MICROCYTOSIS 1+; OVALOCYTES 2+; POIKILOCYTOSIS 2+; POLYCHROMASIA SLIGHT; SCHISTOCYTES SLIGHT; TOXIC GRANULATION SLIGHT
[2016-09-18] MEDS ORDERED: NORMAL SALINE 1000 ML 1,000 ML IV ONE (10:36)
[2016-09-18 10:49] LABS: CREATINE KINASE MB < 0.22 ng/mL (<4.55)
[2016-09-18 10:51] LABS: TROPONIN I 0.056 ng/mL
[2016-09-18 11:25] LABS: APPEARANCE,URINE SLIGHTLY-CLOUDY
[2016-09-18 11:26] LABS: BILIRUBIN,URINE NEGATIVE (NEGATIVE); GLUCOSE, URINE NEGATIVE (NEGATIVE); KETONES,URINE NEGATIVE (NEGATIVE); LEUKOCYTE ESTERASE,URINE TRACE (NEGATIVE); NITRITE,URINE NEGATIVE (NEGATIVE); PROTEIN,URINE 30 mg/dL (NEGATIVE); URINE SPECIFIC GRAVITY 1.021; UROBILINOGEN,URINE NEGATIVE mg/dL (<2.0)
[2016-09-18 11:27] LABS: BACTERIA,URINE TRACE /HPF; RBC,URINE 20-30 /HPF
[2016-09-18 12:06] VITALS: BP 124/83
== END 2016-09-18 13:10 | disposition home or self-care (01) ==
LOC: ER 07:40
DX: R07.9 Chest pain, unspecified (principal); M54.89 Other dorsalgia; G89.29 Other chronic pain; R31.9 Hematuria, unspecified; R60.0 Localized edema; Z88.2 Allergy status to sulfonamides; I10 Essential (primary) hypertension; Z87.01 Personal history of pneumonia (recurrent); Z95.2 Presence of prosthetic heart valve
CPT/HCPCS: 93005; 99285; 96360; 96361; 36415; 82553; 82550; 85025; 85610; 80053; 81001; 84484; 71010; 93010; J7030

== ENCOUNTER 2016-09-24 17:38 | Emergency (ER) | payer OTHER, MEDICAID ==
[2016-09-24 18:05] LABS: HEMATOCRIT 29.6 % (37.9-51.0); HEMOGLOBIN 9.1 g/dL (13.5-17.0); HGB HCT DIFFERENCE -2.3; MEAN CORPUSCULAR HEMOGLOBIN 23.5 pg (27.0-33.4); MEAN CORPUSCULAR HGB CONC 30.8 g/dL (32.0-36.0); MEAN CORPUSCULAR VOLUME 76 fl (80-97); RED BLOOD COUNT 3.89 10^6/uL (4.35-5.55); WHITE BLOOD COUNT 24.7 10^3/uL (4.0-10.5)
[2016-09-24 18:17] LABS: ALANINE AMINOTRANSFERASE 22 U/L (21-72); ALBUMIN 2.7 g/dL (3.5-5.0); ALKALINE PHOSPHATASE 110 U/L (38-126); ANION GAP 10 (5-19); ASPARTATE AMINO TRANSFERASE 15 U/L (17-59); BILIRUBIN,DIRECT 0.4 mg/dL (0.0-0.4); BILIRUBIN,TOTAL 0.9 mg/dL (0.2-1.3); BLOOD UREA NITROGEN 21 mg/dL (7-20); CALCIUM 8.2 mg/dL (8.4-10.2); CARBON DIOXIDE 24 mmol/L (22-30); CHLORIDE 97 mmol/L (98-107); CREATINE KINASE 33 U/L (55-170); CREATININE RESULT 0.86 mg/dL (0.52-1.25); GLUCOSE 188 mg/dL (75-110); POTASSIUM 4.1 mmol/L (3.6-5.0); SODIUM 130.8 mmol/L (137-145); TOTAL PROTEIN 6.1 g/dL (6.3-8.2)
[2016-09-24 18:21] LABS: BASOPHILS % (MANUAL) 0 % (0-2); EOSINOPHILS % (MANUAL) 0 % (0-6); LYMPHOCYTES % (MANUAL) 0 % (13-45); TOTAL CELLS COUNTED 100
[2016-09-24 18:24] LABS: ANISOCYTOSIS 1+; BURR CELLS 1+; HYPOCHROMASIA 1+; MICROCYTOSIS 1+; OVALOCYTES 1+; POIKILOCYTOSIS 2+; POLYCHROMASIA SLIGHT
[2016-09-24 18:28] LABS: CREATINE KINASE MB 1.55 ng/mL (<4.55)
--- NOTE | 2016-09-24 18:28 | RADIOLOGY REPORT (SQ) ---
EXAM DESCRIPTION: CHEST SINGLE VIEW COMPLETED DATE/TIME: 09/24/2016 6:12 pm REASON FOR STUDY: bed 3 cp COMPARISON: 09/18/2016. NUMBER OF VIEWS: One view. TECHNIQUE: Single frontal radiographic view of the chest acquired. LIMITATIONS: None. FINDINGS: LUNGS AND PLEURA: No opacities, masses or pneumothorax. No pleural effusion. MEDIASTINUM AND HILAR STRUCTURES: No masses. Contour normal. HEART AND VASCULAR STRUCTURES: Heart normal in size. Normal vasculature. BONES: No acute findings. HARDWARE: None in the chest. OTHER: No other significant finding. IMPRESSION: NO SIGNIFICANT RADIOGRAPHIC FINDING IN THE CHEST. TECHNICAL DOCUMENTATION: JOB ID: [id number] [employer]- All Rights Reserved
[2016-09-24 18:39] LABS: TROPONIN I 0.285 ng/mL
[2016-09-24] MEDS ORDERED: ONDANSETRON HCL INJ/PF 4 MG/2 ML SDV IV ONE (19:00)
[2016-09-24] MEDS ORDERED: NITROGLYCERIN 0.4 MG/TAB 25 TAB/BOTTLE SL PRN (19:03)
--- NOTE | 2016-09-24 19:20 | ER Document Report ---
ED General - General Chief Complaint: Chest Pain Stated Complaint: CHEST PAIN Time Seen by Provider: 09/24/16 18:38 Mode of Arrival: Ambulatory Information source: Law Enforcement TRAVEL OUTSIDE OF THE [place] IN LAST 30 DAYS: No - HPI Notes: Patient is a 46-year-old white male history of extensive cardiac disease with atrial fibrillation and thoracic aortic aneurysm repair and mechanical heart valve replacement in 2011 with a [place] Roni aortic valve and previous history of chronic narcotic abuse and drug-seeking behavior presents to the emergency department with report that he was arrested 2 days ago related to issues with previous heroin abuse, but reports his last narcotic use was 3 weeks ago. Patient states that he has chest pain that started 2 days ago with pain and some swelling to both legs. The patient also reports worsening of his lower back pain. Patient reports mild associated nausea and reports minimal dyspnea associated with the chest pain. He denies any vomiting or diarrhea. Patient had aspirin prior to arrival. Review of record shows that the patient had a CT scan of the abdomen on 09/11/16 which showed stable bilateral renal stones, but no ureteral stones. The patient did have some hematuria related to her elevated INR of 14. The patient at that time was given 20 tablets of Dilaudid and 14 tablets of Opana. Patient reports last cardiac catheterization was 2011 in [facility] by Dr. Chacon when they identified a thoracic aneurysm. He is unaware of any stenting or other vascular issues. - Related Data Allergies/Adverse Reactions: Sulfa (Sulfonamide Antibiotics) Allergy (Intermediate, Verified 09/18/16 07:53) hydromorphone HCl [From Dilaudid] Adverse Reaction (Verified 09/18/16 07:53) Past Medical History - General Information source: Patient - Social History Smoking Status: Former Smoker Frequency of alcohol use: None Drug Abuse: Heroin, Prescription drugs Lives with: Alone Family History: Reviewed & Not Pertinent, CAD - Past Medical History Cardiac Medical History: Reports: Hx Atrial Fibrillation - Paroxysmal atrial fibrillation, Hx Hypertension Pulmonary Medical History: Reports: Hx Bronchitis, Hx Pneumonia - "WALKING" Renal/ Medical History: Reports: Hx Kidney Stones. Denies: Hx Peritoneal Dialysis Musculoskeltal Medical History: Reports Hx Arthritis - Back Past Surgical History: Reports: Hx Appendectomy, Hx Genitourinary Surgery, Hx Kidney (Renal Surgery) - percutaneous nephrostomy, Hx Open Heart Surgery - Mechanical heart valve, Hx Valve Replacement - St. Roni aortic valve replacement , Hx Vascular Surgery - Thoracic aortic aneurysm repair - Immunizations Hx Diphtheria, Pertussis, Tetanus Vaccination: Yes Review of Systems - Review of Systems Notes: REVIEW OF SYSTEMS: CONSTITUTIONAL : Denies fever, chills, or sweats. Denies recent illness. EENT: Denies eye, ear, throat, or mouth pain or symptoms. Denies nasal or sinus congestion or discharge. Denies throat, tongue, or mouth swelling or difficulty swallowing. CARDIOVASCULAR: Patient reports irregular rate consistent with history of atrial fibrillation. He does report bilateral lower extremity edema. RESPIRATORY: Denies cough, cold, or chest congestion. Denies wheezing. GASTROINTESTINAL: Denies abdominal pain or distention. Denies vomiting, or diarrhea. Denies blood in vomitus, stools, or per rectum. Denies black, tarry stools. Denies constipation. GENITOURINARY: Denies difficulty urinating, painful urination, burning, frequency, or discharge. patient reports previously had some hematuria but it is now improved. MUSCULOSKELETAL: Denies neck pain or stiffness. Patient reports some pain to both ankles and knees. He denies any acute trauma to the areas. He does report lower back pain left greater than right, similar to previous complaints in the old record. SKIN: Denies rash, lesions or sores. HEMATOLOGIC : Patient reports easy bruising chronically while being on Coumadin. LYMPHATIC: Denies swollen, enlarged glands. NEUROLOGICAL: Denies confusion or altered mental status. Denies passing out or loss of consciousness. Denies dizziness or lightheadedness. Denies headache. Denies weakness or paralysis or loss of use of either side. Denies problems with gait or speech. Denies sensory loss, numbness, or tingling. Denies seizures. PSYCHIATRIC: Denies anxiety or stress. Denies depression, suicidal ideation, or homicidal ideation. ALL OTHER SYSTEMS REVIEWED AND NEGATIVE. Dictation was performed using [employer] voice recognition software Physical Exam - Vital signs Vitals: Resp 22 H 09/24/16 17:42 - Notes Notes: PHYSICAL EXAMINATION: GENERAL: Well-appearing, well-nourished and in no acute distress. HEAD: Atraumatic, normocephalic. EYES: Pupils equal round and reactive to light, extraocular movements intact, sclera anicteric, conjunctiva are normal. ENT: Nares patent, oropharynx clear without exudates. Moist mucous membranes. NECK: Normal range of motion, supple without lymphadenopathy LUNGS: Breath sounds clear to auscultation bilaterally and equal. No wheezes rales or rhonchi. HEART: irregular rate and rhythm rate with mechanical aortic valve S2 and patient has a 2/6 systolic ejection murmur best auscultated over the apex. Rate is 106 consistent with atrial fibrillation. ABDOMEN: Soft, nontender, nondistended abdomen. No guarding, no rebound. No masses appreciated. Musculoskeletal: Normal range of motion. No cyanosis. Patient has 1+ bilateral lower extremity edema. Negative Homans no palpable cord. He describes some pain to both ankles. Patient has bilateral paraspinal lumbar pain. No crepitance or bony deformity or erythema. No specific CVA tenderness. NEUROLOGICAL: Cranial nerves grossly intact. Normal speech, normal gait. Normal sensory, motor exams PSYCH: Normal mood, normal affect. SKIN: Warm, Dry, normal turgor, no rashes or lesions noted. No distal splinter lesions noted on the hands or feet. Course - Re-evaluation Re-evalutation: 09/24/16 20:05 Patient had already received aspirin before coming in. Patient was given IV Zofran. Patient's BNP was elevated at 12,100 today, increased from previous value of 3700 on 09/11/16. Chest x-ray however was negative for obvious congestive heart failure findings. 09/24/16 20:11 Patient's previous troponin on 09/18/16 was 0.056. Tonight was 0.285 trending up to 0.33 then up to 0.465 on every 4 hour testing. High suspicion raised for acute subendocardial injury versus cardiac strain. Patient was already appropriately anticoagulated with an INR of 2.07. Patient was given initial sublingual nitro with some improvement in his chest pain, but he requested narcotic analgesia with morphine. Patient was given 1 dose of morphine, then was placed upon a fentanyl patch 50 mcg. He was told he would not receive any more narcotics after that. Patient was given Tylenol. Patient was given Lasix 40 mg IV and had appropriate diuresis. Blood pressure was 104 systolic, and would not sustain additional nitroglycerin paste. 09/25/16 03:35 Question raised for SBE given the elevated white blood cell count of 24,000, although the patient was afebrile. He does report a previous history of SBE. Discussion was undertaken with the patient and he was in agreement with admission for further evaluation and care. Patient exceeded the care capabilities of this facility given the need for possible interventional cardiology capabilities. Patient is currently incarcerated, and Discussion was undertaken with Dr. Mooney at [facility] in [place], [place] who advised transfer to a regional cardiology referral center. Previously been seen at [facility] in [place]. Discussion was undertaken with Dr. Denise who accepted the pt in transfer to [facility]. 09/25/16 03:38 - Vital Signs Vital signs: Temp Pulse Resp BP Pulse Ox 98.4 F 102 H 14 112/80 97 09/24/16 18:10 09/24/16 17:55 09/25/16 03:01 09/25/16 03:01 09/25/16 03:01 - Laboratory Result Diagrams: 09/24/16 17:45 09/24/16 17:45 Laboratory results interpreted by me: 09/24/16 09/24/16 09/24/16 17:45 17:45 17:45 WBC 24.7 H RBC 3.89 L Hgb 9.1 L Hct 29.6 L MCV 76 L MCH 23.5 L MCHC 30.8 L RDW 15.0 H Seg Neuts % (Manual) 100 H Lymphocytes % (Manual) 0 L Monocytes % (Manual) 0 L Abs Neuts (Manual) 24.7 H Abs Lymphs (Manual) 0.0 L Abs Monocytes (Manual) 0.0 L PT 24.6 H Sodium 130.8 L Chloride 97 L BUN 21 H Glucose 188 H Calcium 8.2 L AST 15 L Creatine Kinase 33 L NT-Pro-B Natriuret Pep Total Protein 6.1 L Albumin 2.7 L Urine Blood 09/24/16 09/24/16 17:45 19:21 WBC RBC Hgb Hct MCV MCH MCHC RDW Seg Neuts % (Manual) Lymphocytes % (Manual) Monocytes % (Manual) Abs Neuts (Manual) Abs Lymphs (Manual) Abs Monocytes (Manual) PT Sodium Chloride BUN Glucose Calcium AST Creatine Kinase NT-Pro-B Natriuret Pep 22652 H Total Protein Albumin Urine Blood LARGE H - EKG Interpretation by Me Additional EKG results interpreted by me: 09/24/16 20:06 EKG as interpreted by me showed atrial fibrillation with controlled ventricular response rate of 97. There was poor R-wave progression noted with Q waves noted in the 1 2 and 3. No obvious STEMI identified. There was some differences in the R-wave progression as compared to previous EKG from 09/18/16. Critical Care Note - Critical Care Note Total time excluding time spent on procedures (mins): 83 Discharge - Discharge Clinical Impression: Acute subendocardial PA of anterior wall Chest pain Qualifiers: Chest pain type: unspecified Qualified Code(s): R07.9 - Chest pain, unspecified CHF (congestive heart failure) Qualifiers: Congestive heart failure type: unspecified congestive heart failure type Congestive heart failure chronicity: acute Qualified Code(s): I50.9 - Heart failure, unspecified Edema Qualifiers: Edema type: unspecified Qualified Code(s): R60.9 - Edema, unspecified Thoracic aneurysm without mention of rupture Qualifiers: Presence of rupture: without rupture Qualified Code(s): I71.2 - Thoracic aortic aneurysm, without rupture Condition: Stable Disposition: [facility]
[2016-09-24 19:21] LABS: PROTHROMBIN TIME 24.6 SEC (11.4-15.4)
[2016-09-24 19:45] LABS: AMORPHOUS SEDIMENT,URINE TRACE /HPF; APPEARANCE,URINE SLIGHTLY-CLOUDY; BILIRUBIN,URINE NEGATIVE (NEGATIVE); GLUCOSE, URINE NEGATIVE (NEGATIVE); KETONES,URINE NEGATIVE (NEGATIVE); LEUKOCYTE ESTERASE,URINE NEGATIVE (NEGATIVE); NITRITE,URINE NEGATIVE (NEGATIVE); PROTEIN,URINE NEGATIVE (NEGATIVE); URINE SPECIFIC GRAVITY 1.004; UROBILINOGEN,URINE NEGATIVE mg/dL (<2.0)
[2016-09-24] MEDS ORDERED: MORPHINE SULFATE 10 MG/ML INJ IV ONE (20:26)
[2016-09-24] MEDS ORDERED: FENTANYL 50 MCG/HR PATCH.TD72 TD ONE (20:28)
[2016-09-24] MEDS ORDERED: NITROGLYCERIN 2% OINTMENT 1 GM PACKET TP ONE (20:28)
[2016-09-24] MEDS ORDERED: FUROSEMIDE INJ/PF 40 MG/4 ML SDV IV ONE (20:30)
--- NOTE | 2016-09-24 21:39 | EKG REPORT ---
SEVERITY:- ABNORMAL ECG - ATRIAL FIBRILLATION, V-RATE 82-112 LEFT AXIS DEVIATION PROBABLE ANTEROSEPTAL INFARCT, AGE INDETERM BORDERLINE PROLONGED QT INTERVAL : Confirmed by: Jose Henriquez 24-Sep-2016 21:39:25
[2016-09-25] MEDS ORDERED: ACETAMINOPHEN 325 MG TABLET PO ONE (00:03)
[2016-09-25 01:10] LABS: CREATINE KINASE MB 2.26 ng/mL (<4.55)
[2016-09-25 01:13] LABS: TROPONIN I 0.465 ng/mL
--- NOTE | 2016-09-25 02:54 | RADIOLOGY REPORT (SQ) ---
EXAM DESCRIPTION: CTA CHEST COMPLETED DATE/TIME: 09/25/2016 2:26 am REASON FOR STUDY: chest pain, hx AVR and SBE COMPARISON: 06/01/2015 TECHNIQUE: CT scan of the chest performed using helical scanning technique with dynamic intravenous contrast injection. Images reviewed with lung, soft tissue and bone windows. Reconstructed coronal and sagittal MPR images reviewed. Additional 3 dimensional post-processing performed to develop Maximal Intensity Projection images ([place] P). All images stored on PACS. All CT scanners at this facility use dose modulation, iterative reconstruction, and/or weight based d osing when appropriate to reduce radiation dose to as low as reasonably achievable (ALARA). [facility]: Dose Right [facility]: CareDose [facility]: Dose Right [facility]: Teradose 4D [facility]: Marketfish CONTRAST TYPE AND DOSE: 75 mL is a Isovue 370. RENAL FUNCTION: Creatinine 0.9 RADIATION DOSE: Up-to-date CT equipment and radiation dose reduction techniques were employed. CTDIv ol: 3.3 - 14.8 mGy. DLP: 599 mGy-cm. . LIMITATIONS: None. FINDINGS: LUNGS AND PLEURA: Small bibasilar dependent atelectasis and minimal left pleural fluid. M oderate centrilobular emphysema. AORTA AND GREAT VESSELS: Mild chronic aneurysmal enlargement of the ascending thoracic aorta measures 3.8 cm in diameter. Atherosclerosis. HEART: No pericardial effusion. Aortic valve replacement. No right ventricular strain. PULMONARY ARTERIES: No emboli visualized in the main pulmonary arteries or the segmental branches. HILAR AND MEDIASTINAL STRUCTURES: No identified masses or abnormal nodes. HARDWARE: Sternotomy. UPPER ABDOMEN: Splenomegaly partially imaged. THYROID AND OTHER SOFT TISSUES: No masses. No adenopathy. BONES: No acute or significant finding. 3D MIPS: Confirm above findings. OTHER: No other significant finding. IMPRESSION: No acute cardiopulmonary findings. No evidence of pulmonary emboli. Chronic mild aneur ysmal enlargement of the ascending thoracic aorta measures 3.8 cm in diameter. Splenomegaly. TECHNICAL DOCUMENTATION: JOB ID: [id number] Quality ID # [id number]: Final reports with documentation of one or more dose reduction techniques (e.g., Au tomated exposure control, adjustment of the mA and/or kV according to patient size, use of iterative reconstruction technique) 2010 [employer]- All Rights Reserved
[2016-09-25] MEDS ORDERED: DILTIAZEM HCL INJ 25 MG/5 ML VIAL IV ONE (05:04)
[2016-09-25] MEDS: DILTIAZEM HCL/D5W 125 ML IV PRN ×3 (05:06→06:21)
[2016-09-25] MEDS ORDERED: LORAZEPAM INJ 2 MG/1 ML VIAL IV ONE (05:23)
[2016-09-25] MEDS ORDERED: LORAZEPAM INJ 2 MG/1 ML VIAL ONE (05:26)
[2016-09-25 05:27] LABS: URINE BARBITURATES SCREEN NEGATIVE; URINE METHADONE SCREEN NEGATIVE; URINE OPIATES LOW UNCONFIRMED POSITIVE; URINE PHENCYCLIDINE SCREEN NEGATIVE
[2016-09-25] MEDS ORDERED: DILTIAZEM HCL INJ 25 MG/5 ML VIAL ONE (05:51)
[2016-09-25] MEDS ORDERED: VANCOMYCIN HCL INJ 1000 MG VIAL IV ONE (06:05)
[2016-09-25 06:07] VITALS: BP 121/62
[2016-09-25] MEDS ORDERED: NORMAL SALINE 500 ML IV ONE (06:12)
--- NOTE | 2016-09-25 08:25 | EKG REPORT ---
SEVERITY:- ABNORMAL ECG - ATRIAL FIBRILLATION, V-RATE 115-155 PROBABLE LVH WITH SECONDARY REPOL ABNRM : Confirmed by: Franklin Almazan MD 25-Sep-2016 08:24:37
== END 2016-09-25 08:20 | disposition short-term general hospital (02) ==
LOC: ER 17:38
DX: I11.0 Hypertensive heart disease with heart failure (principal); I50.9 Heart failure, unspecified; I48.0 Paroxysmal atrial fibrillation; I21.09 ST elevation (STEMI) myocardial infarction involving other coronary artery of anterior wall; I71.2 Thoracic aortic aneurysm, without rupture; Z95.2 Presence of prosthetic heart valve; M54.5 Low back pain; R11.0 Nausea; R07.9 Chest pain, unspecified; D72.829 Elevated white blood cell count, unspecified; Z88.2 Allergy status to sulfonamides; Z87.891 Personal history of nicotine dependence; Z79.899 Other long term (current) drug therapy; R60.0 Localized edema
CPT/HCPCS: 93005 ×2; 99291; 99292; 96375; 96365; 96366; 96368; 36415; 87040; 82553; 82550; 83735; 85025; 85610; 87077; 80053; 81001; 84484; 87186; 80307; 83605; 83880; 71010; 71275; 93010 ×2; J1940; J3490 ×3; J2270; J2060; J2405; J3370